=== PATIENT | male | born 1965 | race Caucasian/White ===

== ENCOUNTER 2017-04-03 14:46 | Emergency (ER) | payer MEDICAID, OTHER ==
[~2017-04-03 14:46] MED LIST: CEPHALEXIN 500 MG CAP PO SCH; SULFAMETHOX/TMP 800/160 MG 1 TAB PO SCH
[2017-04-03 14:57] VITALS: RESP 18; TEMP 98.8
--- NOTE | 2017-04-03 15:27 | EDPHY ---
H & P Time Seen by Provider: 04/03/17 15:19 HPI/ROS: HPI: 51-year-old homeless male presents to ED with chief concern right forearm abscess. Symptoms onset 4-5 days ago. Reports right forearm redness, swelling. Denies fever, chills, myalgias, nausea, vomiting. He is IV drug user. Currently living at the [facility]. He is a chronic pain patient followed by Dr. Sharri Melendez on oxycodone. Allergy to amoxicillin is rash. ROS:10 point review of systems is negative other than as stated in HPI Past Medical/Surgical History: IV drug user, chronic pain patient Social History: Homeless Smoking Status: Current every day smoker Physical Exam: Vital signs reviewed by me General: Awake, alert, calm, cooperative. No acute distress. Head: Normalocephalic. Atraumatic. EENT: PERRLA. EOMI. No pallor or injection. Anicteric. No nystagmus. No injection. TMs intact bilaterally with normal landmarks. Neck: Supple, nontender. No lymphadenopathy. Full range of motion. No meningismus. Respiratory: Breathing unlabored. Breath sounds equal bilaterally and clear to auscultation. No adventitious sounds. CV: Chest nontender, atraumatic. Heart rate regular and tachycardic. No murmur , distal pulses 2+ bilaterally. Brisk cap refill all extremities. GI: Abdomen soft, nontender. Bowel sounds normoactive and positive x4 quadrants. Neuro: Alert. Oriented x 3. Speech clear. Nonfocal cranial nerves throughout. Sensation intact all extremities. Skin: Skin warm, dry, intact. Track gomez bilateral upper extremities. 3 cm x 2 cm abscess ventral aspect right forearm. Minimal surrounding cellulitis. Extremities: Full range of motion in all 4 extremities. Strength 5+ all extremities. Constitutional: Initial Vital Signs Temperature (C) 37.1 C 04/03/17 14:55 Heart Rate 114 H 04/03/17 14:55 Respiratory Rate 18 04/03/17 14:55 Blood Pressure 125/82 H 04/03/17 14:55 O2 Sat (%) 90 L 04/03/17 14:55 O2 Delivery Mode Room Air Allergies/Adverse Reactions: Penicillins Allergy (Verified 04/03/17 14:55) Home Medications: Medication Instructions Recorded Cephalexin [Keflex (*)] 500 mg PO QID #28 cap 04/03/17 Oxycodone HCl 04/03/17 Sulfamethox/Tmp 800/160 mg 1 tab PO BID #14 tab 04/03/17 [Bactrim Ds] Medical Decision Making ED Course/Re-evaluation: White count 9550. Lactic acid 0.8. Patient will be discharged with Keflex and Bactrim. 1st dose is given in ED. Antibiotics provided to patient through map program-arrange by security manager [place]. Procedure: Abscess drainage. The patient's abscess was located on the right ventral forearm. I obtained verbal consent from the patient to drain the abscess who was informed about the possibility of bleeding and pain. 0.75 cm Incision was made with a [# [id number] ] and a [moderate] amount of purulent drainage was expressed. Wound was irrigated with 500 mL sterile saline. Packing was placed. The patient tolerated the procedure well. The procedure was performed by myself. Sterile dressing and copious amounts of bacitracin of placed by distribution technician. Differential Diagnosis: Abscess, sepsis - Data Points Laboratory Results: Laboratory Results 04/03/17 16:00 04/03/17 04/03/17 16:00 16:00 WBC 9.55 10^3/uL H 10^3/uL (3.80-9.50) RBC 4.31 10^6/uL L 10^6/uL (4.40-6.38) Hgb 12.2 g/dL L g/dL (13.7-17.5) Hct 36.8 % L % (40.0-51.0) MCV 85.4 fL fL (81.5-99.8) MCH 28.3 pg pg (27.9-34.1) MCHC 33.2 g/dL g/dL (32.4-36.7) RDW 14.1 % % (11.5-15.2) Plt Count 374 10^3/uL 10^3/uL (150-400) MPV 9.4 fL fL (8.7-11.7) Neut % (Auto) 65.2 % % (39.3-74.2) Lymph % (Auto) 24.0 % % (15.0-45.0) [place] % (Auto) 8.4 % % (4.5-13.0) Eos % (Auto) 1.6 % % (0.6-7.6) Baso % (Auto) 0.5 % % (0.3-1.7) Nucleat RBC Rel Count 0.0 % % (0.0-0.2) Absolute Neuts (auto) 6.23 10^3/uL 10^3/uL (1.70-6.50) Absolute Lymphs (auto) 2.29 10^3/uL 10^3/uL (1.00-3.00) Absolute Monos (auto) 0.80 10^3/uL 10^3/uL (0.30-0.80) Absolute Eos (auto) 0.15 10^3/uL 10^3/uL (0.03-0.40) Absolute Basos (auto) 0.05 10^3/uL 10^3/uL (0.02-0.10) Absolute Nucleated RBC 0.00 10^3/uL 10^3/uL (0-0.01) Immature Gran % 0.3 % % (0.0-1.1) Immature Gran # 0.03 10^3/uL 10^3/uL (0.00-0.10) VBG Lactic Acid 0.8 mmol/L mmol/L (0.7-2.1) Departure - Departure Disposition: Home, Routine, Self-Care Clinical Impression: Abscess Condition: Good Instructions: Abscess (ED) Additional Instructions: Plan: Return to the emergency department in 48 hours for recheck and packing removal without fail Keflex antibiotic for 1 week as prescribed Bactrim antibiotic for 1 week as prescribed Heat to area 3 times daily for 20 minutes Keep extremity elevated while at rest Referrals: Renay Melendez [Primary Care Provider] - As per Instructions Prescriptions: Cephalexin [Keflex (*)] 500 mg PO QID #28 cap Sulfamethox/Tmp 800/160 mg [Bactrim Ds] 1 tab PO BID #14 tab
[2017-04-03] MEDS ORDERED: CEPHALEXIN 500 MG CAP PO ONE (15:46)
[2017-04-03] MEDS ORDERED: SULFAMETHOX/TMP 800/160 MG 1 TAB PO ONE (15:46)
[2017-04-03 16:09] LABS: % IMMATURE GRANULYOCYTES 0.3 % (0.0-1.1); ABSOLUTE IMMATURE GRANULOCYTES 0.03 10^3/uL (0.00-0.10); ADD DIFF? NO; ADD MORPH? NO; ADD SCAN? NO; ATYPICAL LYMPHOCYTE FLAG 30 (0-99); FRAGMENT RBC FLAG 0 (0-99); HEMATOCRIT 36.8 % (40.0-51.0); HEMOGLOBIN 12.2 g/dL (13.7-17.5); LEFT SHIFT FLG 0 (0-99); LIPEMIA HEMOLYSIS FLAG 80 (0-99); MEAN CELL HEMOGLOBIN 28.3 pg (27.9-34.1); MEAN CELL HEMOGLOBIN CONCENTR. 33.2 g/dL (32.4-36.7); MEAN CELL VOLUME 85.4 fL (81.5-99.8); MEAN PLATELET VOLUME 9.4 fL (8.7-11.7); PLATELET CLUMPS FLAG 0 (0-99); PLATELET COUNT 374 10^3/uL (150-400); RED BLOOD CELL COUNT 4.31 10^6/uL (4.40-6.38); RED CELL DISTRIBUTION WIDTH 14.1 % (11.5-15.2)
[2017-04-03 16:45] VITALS: BP 115/62; PULSE 102; O2SAT 94
== END 2017-04-03 16:42 | disposition home or self-care (01) ==
PROC: 0H9DXZZ Drainage of Right Lower Arm Skin, External Approach (ICD-10-PCS; principal; 2017-04-03)
DX: L02.413 Cutaneous abscess of right upper limb (principal); F17.200 Nicotine dependence, unspecified, uncomplicated

== ENCOUNTER 2017-04-05 14:41 | Emergency (ER) | payer MEDICAID ==
[2017-04-05 14:46] VITALS: BP 107/70; PULSE 69; RESP 18; TEMP 97.3; O2SAT 93
--- NOTE | 2017-04-05 15:16 | EDPHY ---
H & P Stated Complaint: recheck wound r arm Time Seen by Provider: 04/05/17 15:06 HPI/ROS: CHIEF COMPLAINT: Dressing change HISTORY OF PRESENT ILLNESS: Patient is a 51-year-old homeless man who comes to the emergency department for dressing change for an abscess of his right forearm. He was seen here 3 days ago and had I and D. Packing was placed. He was given Keflex and Bactrim through our pharmacy. He has been taking this. He states that his wound is improving. He is here to have the packing removed. He has not had any fevers or body aches. REVIEW OF SYSTEMS: Constitutional: denies: chills, fever, recent illness, recent injury EENTM: denies: blurred vision, double vision, nose congestion Respiratory: denies: cough, shortness of breath Cardiac: denies: chest pain, irregular heart rate, lightheadedness, palpitations Gastrointestinal/Abdominal: denies: abdominal pain, diarrhea, nausea, vomiting, blood streaked stools Genitourinary: denies: dysuria, frequency, hematuria, pain Musculoskeletal: denies: joint pain, muscle pain Skin: See HPI Neurological: denies: headache, numbness, paresthesia, tingling, dizziness, weakness Hematologic/Lymphatic: denies: blood clots, easy bleeding, easy bruising Immunologic/allergic: denies: HIV/AIDS, transplant EXAM: GENERAL: Well-appearing, well-nourished and in no acute distress. HEAD: Atraumatic, normocephalic. EYES: Pupils equal round and reactive to light, extraocular movements intact, sclera anicteric, conjunctiva are normal. ENT: TMs normal, nares patent, oropharynx clear without exudates. Moist mucous membranes. NECK: Normal range of motion, supple without lymphadenopathy or JVD. LUNGS: Breath sounds clear to auscultation bilaterally and equal. No wheezes rales or rhonchi. HEART: Regular rate and rhythm without murmurs, rubs or gallops. ABDOMEN: Soft, nontender, normoactive bowel sounds. No guarding, no rebound. No masses appreciated. BACK: No CVA tenderness, no spinal tenderness, step-offs or deformities EXTREMITIES: Normal range of motion, no pitting or edema. No clubbing or cyanosis. NEUROLOGICAL: Cranial nerves II through XII grossly intact. Normal speech, normal gait. 5 strength, normal movement in all extremities, normal sensation PSYCH: Normal mood, normal affect. SKIN: Patient's packing was removed. Wound is open. No significant purulence currently. Decreased erythema. Source: Patient Exam Limitations: No limitations - Personal History Current Tetanus/Diphtheria Vaccine: Yes - Medical/Surgical History Hx Asthma: No Hx Chronic Respiratory Disease: No Hx Diabetes: No Hx Cardiac Disease: No Hx Renal Disease: No Hx Cirrhosis: No Hx Alcoholism: No Hx HIV/AIDS: No Hx Splenectomy or Spleen Trauma: No Other PMH: lower back surgery - Family History Significant Family History: No pertinent family hx - Social History Smoking Status: Current every day smoker Alcohol Use: Sober Drug Use: None Constitutional: Initial Vital Signs Temperature (C) 36.3 C 04/05/17 14:44 Heart Rate 69 04/05/17 14:44 Respiratory Rate 18 04/05/17 14:44 Blood Pressure 107/70 04/05/17 14:44 O2 Sat (%) 93 04/05/17 14:44 O2 Delivery Mode Room Air Allergies/Adverse Reactions: Penicillins Allergy (Verified 04/05/17 14:42) Home Medications: Medication Instructions Recorded Cephalexin [Keflex (*)] 500 mg PO QID #28 cap 04/03/17 Oxycodone HCl 04/03/17 Sulfamethox/Tmp 800/160 mg 1 tab PO BID #14 tab 04/03/17 [Bactrim Ds] Medical Decision Making ED Course/Re-evaluation: Patient's packing was removed. It was irrigated and redressed. No more packing placed. Patient tolerated the procedure well. I encouraged him to continue taking the antibiotics. He is happy with this and declines any further workup or testing at this time. Differential Diagnosis: Partial list of the Differential diagnosis considered include but were not limited to; abscess, dressing change, packing removal and although unlikely based on the history and physical exam, I also considered cellulitis, sepsis. I discussed these differential diagnoses and the plan with the patient as well as the usual and expected course. The patient understands that the diagnosis is provisional and that in medicine we are not always correct and that further workup is often warranted. Usual and customary warnings were given. All of the patient's questions were answered. The patient was instructed to return to the emergency department should the symptoms at all worsen or return, otherwise to followup with the physician as we discussed. Departure - Departure Disposition: Home, Routine, Self-Care Clinical Impression: Abscess Condition: Fair Instructions: Abscess Follow-up (ED) Referrals: NONE *PRIMARY CARE P,. [Primary Care Provider] - As per Instructions [facility],. [Clinic] - As per Instructions
== END 2017-04-05 15:34 | disposition home or self-care (01) ==
DX: L02.413 Cutaneous abscess of right upper limb (principal); F17.200 Nicotine dependence, unspecified, uncomplicated
CPT/HCPCS: G0463

== ENCOUNTER 2017-05-21 11:57 | Emergency (ER) | payer MEDICAID ==
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
[2017-05-21 12:29] LABS: % IMMATURE GRANULYOCYTES 0.4 % (0.0-1.1); ABSOLUTE IMMATURE GRANULOCYTES 0.02 10^3/uL (0.00-0.10); ADD DIFF? NO; ADD MORPH? NO; ADD SCAN? YES; FRAGMENT RBC FLAG 0 (0-99); HEMATOCRIT 44.6 % (40.0-51.0); HEMOGLOBIN 15.3 g/dL (13.7-17.5); LEFT SHIFT FLG 0 (0-99); LIPEMIA HEMOLYSIS FLAG 90 (0-99); MEAN CELL HEMOGLOBIN 28.3 pg (27.9-34.1); MEAN CELL HEMOGLOBIN CONCENTR. 34.3 g/dL (32.4-36.7); MEAN CELL VOLUME 82.6 fL (81.5-99.8); MEAN PLATELET VOLUME 9.6 fL (8.7-11.7); PLATELET CLUMPS FLAG 0 (0-99); PLATELET COUNT 325 10^3/uL (150-400); RED CELL DISTRIBUTION WIDTH 13.5 % (11.5-15.2)
[2017-05-21 12:36] LABS: ANION GAP 17 mEq/L (8-16); ATYPICAL LYMPHOCYTE FLAG 190 (0-99); CALCIUM 9.7 mg/dL (8.5-10.4); CARBON DIOXIDE 20 mEq/l (22-31); CHLORIDE 103 mEq/L (97-110); CREATININE 0.9 mg/dL (0.7-1.3); ETHANOL SERUM 151 mg/dL (0-10); GLOMERULAR FILTRATION RATE > 60; GLUCOSE 102 mg/dL (70-100); POTASSIUM 4.1 mEq/L (3.5-5.2); SALICYLATE < 1.0 mg/dL (2.0-20.0); SODIUM 140 mEq/L (134-144)
--- NOTE | 2017-05-21 12:43 | CPEKG ---
Heart Rate: 110 RR Interval: 545 P-R Interval: 144 QRSD Interval: 86 QT Interval: 364 QTC Interval: 493 P [place]: 74 QRS [place]: 68 T Wave [place]: 76 EKG Severity - BORDERLINE ECG - EKG Impression: SINUS TACHYCARDIA EKG Impression: BORDERLINE PROLONGED QT INTERVAL Electronically Signed By: Amador Guillen 21-May-2017 12:47:14
[2017-05-21] MEDS ORDERED: KETOROLAC 15 MG/1 ML SDV ONE (12:57)
[2017-05-21 13:12] LABS: SCAN NEGATIVE
[2017-05-21] MEDS ORDERED: oxyCODONE IR 15 MG TAB PO ONE ×2 (15:33→21:56)
[2017-05-21 17:12] VITALS: O2SAT 94
[2017-05-21] MEDS ORDERED: NICOTINE POLACRILEX 2 MG GUM B ONE (17:17)
[2017-05-21] MEDS ORDERED: NICOTINE POLACRILEX 2 MG GUM B PRN (17:22)
[2017-05-21] MEDS ORDERED: oxyCODONE IR 5 MG TAB PO ONE (22:15)
[2017-05-21 22:37] VITALS: BP 123/87; PULSE 94; RESP 16; TEMP 98.4
== END 2017-05-21 22:37 ==
LOC: EDUNIT#
DX: S50.811A Abrasion of right forearm, initial encounter (principal); F32.2 Major depressive disorder, single episode, severe without psychotic features; M54.5 Low back pain; G89.29 Other chronic pain; F10.120 Alcohol abuse with intoxication, uncomplicated; I10 Essential (primary) hypertension; F17.200 Nicotine dependence, unspecified, uncomplicated; X78.8XXA Intentional self-harm by other sharp object, initial encounter
CPT/HCPCS: 80305; G0480; J1885

== ENCOUNTER 2017-07-02 11:27 | Emergency (ER) | payer MEDICAID ==
--- NOTE | 2017-07-02 12:50 | EDPHY ---
H & P Time Seen by Provider: 07/02/17 12:42 HPI/ROS: CHIEF COMPLAINT: Altered mental status HISTORY OF PRESENT ILLNESS: Arrives by EMS altered with history of drinking Listerine. He also has a history of taking opioid medication for chronic back pain. REVIEW OF SYSTEMS: Unable to complete further history or review of systems because of patient's altered mental status on arrival. PAST MEDICAL HISTORY: Lower back surgery and chronic opioid medication, hypertension, depression and anxiety, PTSD Social history: Recent alcohol ingestion per EMS. General Appearance: Sleepy, opens eyes spontaneously. Will not answer questions. Eyes: No scleral icterus. ENT, Mouth: Normal mucous membranes. Respiratory: Normal respiratory effort, breath sounds equal, lungs are clear to auscultation. Cardiovascular: Regular rate and rhythm. Gastrointestinal: Abdomen is soft and non tender. Neurological: Will not answer questions but open spontaneously his eyes. Moves all 4 extremities. Skin: Warm and dry, no rashes. Musculoskeletal: No peripheral edema and no joint swelling. No extremity deformity, no spine step-off, no external evidence of trauma. Psychiatric: Unable on arrival. Emergency Department course/MDM: Arrives by EMS, pre-hospital glucose 87. 1332: Still noted be tachycardic at 140., labs and EKG ordered. 1451: Alert, awake, ambulatory, no medical complaints, admits to alcohol only. No SI or HI. Stable for discharge to detox. Smoking Status: Current every day smoker Constitutional: Initial Vital Signs Temperature (C) 36.5 C 07/02/17 11:35 Heart Rate 85 07/02/17 11:35 Respiratory Rate 16 07/02/17 11:35 Blood Pressure 119/79 07/02/17 11:35 O2 Sat (%) 91 L 07/02/17 11:35 O2 Delivery Mode Room Air O2 (L/minute) 2 Allergies/Adverse Reactions: Penicillins Allergy (Verified 04/05/17 14:42) Home Medications: Medication Instructions Recorded Atomoxetine HCl [Strattera] 40 mg PO 05/21/17 Medical Decision Making - Diagnostics EKG Interpretation: 12-lead EKG interpreted by me; official reading is in trace master. My interpretation is sinus tachycardia rate 127. No ischemic changes. Differential Diagnosis: Differential diagnosis considered for altered mental status including but not limited to hypoglycemia, infectious process, electrolyte abnormality, head injury and intoxicants. - Data Points Laboratory Results: Laboratory Results 07/02/17 13:40 07/02/17 13:40 07/02/17 07/02/17 13:40 13:40 WBC 4.92 10^3/uL 10^3/uL (3.80-9.50) RBC 5.08 10^6/uL 10^6/uL (4.40-6.38) Hgb 14.6 g/dL g/dL (13.7-17.5) Hct 42.7 % % (40.0-51.0) MCV 84.1 fL fL (81.5-99.8) MCH 28.7 pg pg (27.9-34.1) MCHC 34.2 g/dL g/dL (32.4-36.7) RDW 14.6 % % (11.5-15.2) Plt Count 172 10^3/uL 10^3/uL (150-400) MPV 9.5 fL fL (8.7-11.7) Neut % (Auto) 81.3 % H % (39.3-74.2) Lymph % (Auto) 9.6 % L % (15.0-45.0) [place] % (Auto) 7.9 % % (4.5-13.0) Eos % (Auto) 0.0 % L % (0.6-7.6) Baso % (Auto) 0.8 % % (0.3-1.7) Nucleat RBC Rel Count 0.0 % % (0.0-0.2) Absolute Neuts (auto) 4.00 10^3/uL 10^3/uL (1.70-6.50) Absolute Lymphs (auto) 0.47 10^3/uL L 10^3/uL (1.00-3.00) Absolute Monos (auto) 0.39 10^3/uL 10^3/uL (0.30-0.80) Absolute Eos (auto) 0.00 10^3/uL L 10^3/uL (0.03-0.40) Absolute Basos (auto) 0.04 10^3/uL 10^3/uL (0.02-0.10) Absolute Nucleated RBC 0.00 10^3/uL 10^3/uL (0-0.01) Immature Gran % 0.4 % % (0.0-1.1) Immature Gran # 0.02 10^3/uL 10^3/uL (0.00-0.10) Sodium 146 mEq/L H mEq/L (134-144) Potassium 3.8 mEq/L mEq/L (3.5-5.2) Chloride 105 mEq/L mEq/L (97-110) Carbon Dioxide 24 mEq/l mEq/l (22-31) Anion Gap 17 mEq/L H mEq/L (8-16) BUN 10 mg/dL mg/dL (7-23) Creatinine 0.9 mg/dL mg/dL (0.7-1.3) Estimated GFR > 60 Glucose 151 mg/dL H mg/dL (70-100) Calcium 8.5 mg/dL mg/dL (8.5-10.4) Ethyl Alcohol 347 mg/dL H mg/dL (0-10) Medications Given: Discontinued Medications Sodium Chloride (Ns) 500 mls @ 0 mls/hr IV EDNOW ONE; Wide Open PRN Reason: Protocol Stop: 07/02/17 13:32 Last Admin: 07/02/17 13:20 Dose: 500 mls Departure - Departure Disposition: Home, Routine, Self-Care Clinical Impression: Alcoholic intoxication Qualifiers: Complication of substance-induced condition: uncomplicated Qualified Code(s): F10.920 - Alcohol use, unspecified with intoxication, uncomplicated Condition: Good Instructions: Alcohol Intoxication (ED) Referrals: [facility],. [Clinic] - As per Instructions
[2017-07-02] MEDS ORDERED: NS 500 ML IV ONE (13:31)
[2017-07-02 13:49] LABS: % IMMATURE GRANULYOCYTES 0.4 % (0.0-1.1); ABSOLUTE IMMATURE GRANULOCYTES 0.02 10^3/uL (0.00-0.10); ADD DIFF? NO; ADD MORPH? NO; ADD SCAN? NO; ATYPICAL LYMPHOCYTE FLAG 0 (0-99); FRAGMENT RBC FLAG 0 (0-99); HEMATOCRIT 42.7 % (40.0-51.0); HEMOGLOBIN 14.6 g/dL (13.7-17.5); LEFT SHIFT FLG 0 (0-99); LIPEMIA HEMOLYSIS FLAG 90 (0-99); MEAN CELL HEMOGLOBIN 28.7 pg (27.9-34.1); MEAN CELL HEMOGLOBIN CONCENTR. 34.2 g/dL (32.4-36.7); MEAN CELL VOLUME 84.1 fL (81.5-99.8); MEAN PLATELET VOLUME 9.5 fL (8.7-11.7); PLATELET CLUMPS FLAG 0 (0-99); PLATELET COUNT 172 10^3/uL (150-400); RED BLOOD CELL COUNT 5.08 10^6/uL (4.40-6.38); RED CELL DISTRIBUTION WIDTH 14.6 % (11.5-15.2)
--- NOTE | 2017-07-02 13:59 | CPEKG ---
Heart Rate: 127 RR Interval: 472 P-R Interval: 144 QRSD Interval: 86 QT Interval: 312 QTC Interval: 454 P [place]: 69 QRS [place]: 58 T Wave [place]: 73 EKG Severity - OTHERWISE NORMAL ECG - EKG Impression: SINUS TACHYCARDIA Electronically Signed By: Amador Guillen 02-Jul-2017 13:00:20
[2017-07-02 14:12] LABS: ANION GAP 17 mEq/L (8-16); CALCIUM 8.5 mg/dL (8.5-10.4); CARBON DIOXIDE 24 mEq/l (22-31); CHLORIDE 105 mEq/L (97-110); CREATININE 0.9 mg/dL (0.7-1.3); GLOMERULAR FILTRATION RATE > 60; GLUCOSE 151 mg/dL (70-100); POTASSIUM 3.8 mEq/L (3.5-5.2); SODIUM 146 mEq/L (134-144)
[2017-07-02 14:35] LABS: ETHANOL SERUM 347 mg/dL (0-10)
[2017-07-02 14:58] VITALS: RESP 18
[2017-07-02 14:59] VITALS: PULSE 125
[2017-07-02 15:05] VITALS: BP 116/68; TEMP 98.4; O2SAT 98
== END 2017-07-02 15:04 | disposition home or self-care (01) ==
LOC: EDUNIT#
DX: F10.920 Alcohol use, unspecified with intoxication, uncomplicated (principal); F17.200 Nicotine dependence, unspecified, uncomplicated; E86.9 Volume depletion, unspecified
CPT/HCPCS: G0480

== ENCOUNTER 2017-07-02 16:29 | Emergency (ER) | payer MEDICAID ==
[2017-07-02 16:36] VITALS: RESP 16; O2SAT 92
--- NOTE | 2017-07-02 16:41 | EDPHY ---
H & P Time Seen by Provider: 07/02/17 16:34 HPI/ROS: CHIEF COMPLAINT: Altered mental status HISTORY OF PRESENT ILLNESS: Patient just released from the ER was brought in by EMS glucose 122 with altered mental status. Drinking Listerine again. Appears intoxicated but no other medical complaints. REVIEW OF SYSTEMS: Eye: no change in vision ENT: no sore throat Cardiac: no chest pain or syncope Pulmonary: no cough or SOB Abdomen: no vomiting, diarrhea, abdominal pain Musculoskeletal: no back pain Skin: no rash Neuro: generally weak and slower as above. Constitutional: no fever : no urinary symptoms A comprehensive 10 point review of systems is otherwise negative aside from elements mentioned in the history of present illness. PAST MEDICAL HISTORY: Low back pain, hypertension, depression and anxiety Social history: Recent alcohol, no drugs General Appearance: Patient cooperative with the exam. Not in distress. Eyes: No scleral icterus. ENT, Mouth: Normal mucous membranes. Respiratory: Normal respiratory effort, breath sounds equal, lungs are clear to auscultation. Cardiovascular: Regular rate and rhythm. Gastrointestinal: Abdomen is soft and non tender. Neurological: Opens eyes spontaneously, admits ethanol, follows commands. Moving all 4 extremities. Skin: Warm and dry, no rashes. No external evidence of trauma. No lacerations, no bruising, no hematomas. Musculoskeletal: No peripheral edema and no joint swelling. Psychiatric: Not agitated. Emergency Department course/MDM: Recurrent ethanol intoxication with normal glucose. Plan for observation until sober enough to discharge to detox. 1750: ambulatory, not ataxic, no medical complaints, speech not slurred. Smoking Status: Current every day smoker Constitutional: Initial Vital Signs Temperature (C) 37.2 C 07/02/17 16:35 Heart Rate 72 07/02/17 16:35 Respiratory Rate 16 07/02/17 16:35 Blood Pressure 99/59 L 07/02/17 16:35 O2 Sat (%) 92 07/02/17 16:35 O2 Delivery Mode Room Air Allergies/Adverse Reactions: Penicillins Allergy (Verified 07/02/17 19:04) Home Medications: Medication Instructions Recorded Atomoxetine HCl [Strattera] 40 mg PO 05/21/17 Departure - Departure Disposition: Home, Routine, Self-Care Clinical Impression: Alcohol intoxication Qualifiers: Complication of substance-induced condition: uncomplicated Qualified Code(s): F10.920 - Alcohol use, unspecified with intoxication, uncomplicated Condition: Good Instructions: Alcohol Intoxication (ED), Abuse of Alcohol (ED) Referrals: [facility],. [Clinic] - As per Instructions
[2017-07-02 16:43] VITALS: TEMP 99
[2017-07-02 17:51] VITALS: BP 110/70; PULSE 70
== END 2017-07-02 17:30 | disposition home or self-care (01) ==
LOC: EDUNIT#
DX: F10.920 Alcohol use, unspecified with intoxication, uncomplicated (principal); I10 Essential (primary) hypertension; F17.200 Nicotine dependence, unspecified, uncomplicated

== ENCOUNTER 2017-07-02 19:00 | Emergency (ER) | payer MEDICAID ==
[2017-07-02 19:06] VITALS: RESP 16; TEMP 98.1; O2SAT 97
--- NOTE | 2017-07-02 20:42 | EDPHY ---
H & P Smoking Status: Current every day smoker Time Seen by Provider: 07/02/17 20:40 HPI/ROS: HPI: Mr. Mandujano is a 51 yrs, male who presents with Chief Complaint: Head injury Location: Head Quality: Injury Duration: Today Signs and Symptoms: Unsure if loss of consciousness due to alcohol intoxication , + mild neck pain, no nausea, no vomiting, no headache, no fever, no chest pain , no shortness of breath Timing: Sudden Severity: Moderate Context: Patient relates that he was drinking alcohol today will not admit to the amount of use when he accidentally tripped and fell down the stairs. He presents with a cut to the top of his head as well as some mild neck pain. Modifying Factors: Comment: ROS: Eyes: No blurred vision Respiratory: No shortness of breath, no cough Cardiovascular: No chest pain Gastrointestinal: No nausea, no vomiting no diarrhea Genitourinary: No dysuria Extremities: No myalgias Neurologic: No weakness, no numbness Skin: No rashes Hematologic: No bruising, no bleeding (Marzena Syed) Past Medical/Surgical History: Lower back surgery, chronic back pain, chronic opiate use/dependence, hypertension, depression, anxiety, posttraumatic stress disorder. (Marzena Syed) Social History: Single, unemployed. (Marzena Syed) Physical Exam: CONSTITUTIONAL: Sleeping soundly adult white male who is clearly intoxicated, not easily awakened, no obvious distress HEENT: 2 inch skin tear noted on right parietal area of scalp; no active bleeding. and normocephalic, PERRL, EOMI. Tympanic membranes clear. Oropharynx clear, no exudate and moist pink mucosa. Airway patent. NECK: Supple, mild posterior tenderness, full range of motion. No lymphadenopathy. No meningismus. Cardiovascular: Normal S1/S2, tachycardia, regular rhythm, without murmur rub or gallop. PULMONARY/CHEST: Symmetrical and nontender. Clear to auscultation bilaterally Good air movement. No accessory muscle usage. ABDOMEN: Soft, nondistended, nontender, no rebound, no guarding, no peritoneal signs, no masses or organomegaly. No CVAT. EXTREMITIES: 2/2 pulses, no deformities, no clubbing, no cyanosis or edema. NEUROLOGICAL: no focal neuro deficits. GCS 15. SKIN: Warm and dry, no erythema. no rash. Good capillary refill. (Marzena Syed) Constitutional: Initial Vital Signs Temperature (C) 36.7 C 07/02/17 19:04 Heart Rate 105 H 07/02/17 19:04 Respiratory Rate 16 07/02/17 19:04 Blood Pressure 108/73 07/02/17 19:04 O2 Sat (%) 97 07/02/17 19:04 O2 Delivery Mode Room Air Allergies/Adverse Reactions: Penicillins Allergy (Verified 07/02/17 19:04) Home Medications: Medication Instructions Recorded Atomoxetine HCl [Strattera] 40 mg PO 05/21/17 Medical Decision Making ED Course/Re-evaluation: Due to alcohol intoxication in unreliable historians to loss of consciousness head CT scan ordered along with cervical CT scan Head CT scan shows no acute intracranial process including hemorrhage CT cervical scan shows mild degenerative disc disease; no fracture (Marzena Syed) I did not see this patient while he was in the emergency department. However his care was discussed with the PA while the patient was in the department. I agree with treatment plan and management (Gage Alfonso) Differential Diagnosis: Differential diagnosis includes but is not limited did to intracranial hemorrhage, contusion, cervical fracture, alcohol intoxication, concussion. (Marzena Syed) Departure - Departure Disposition: Home, Routine, Self-Care Clinical Impression: Alcohol intoxication, Skin tear, Accidental fall Condition: Good Instructions: Scalp Contusion in Adults (ED) Referrals: NONE *PRIMARY CARE P,. [Primary Care Provider] - As per Instructions [facility] [Clinic] - 2-3 days, if not improved
[2017-07-03 01:25] VITALS: BP 110/71; PULSE 90
== END 2017-07-02 22:34 | disposition home or self-care (01) ==
LOC: EDUNIT#
DX: S01.01XA Laceration without foreign body of scalp, initial encounter (principal); F10.129 Alcohol abuse with intoxication, unspecified; F17.200 Nicotine dependence, unspecified, uncomplicated; W10.8XXA Fall (on) (from) other stairs and steps, initial encounter; Y99.8 Other external cause status

== ENCOUNTER 2017-07-03 16:21 | Emergency (ER) | payer MEDICAID ==
--- NOTE | 2017-07-03 16:30 | EDPHY ---
HPI/HX/ROS/PE/MDM Narrative: CHIEF COMPLAINT: Alcohol intoxication HISTORY OF PRESENT ILLNESS: The patient is a 51-year-old male, seen here three times yesterday with alcohol intoxication, who presents with alcohol intoxication. The patient was found lying down outside of [employer]. He admits to vodka use today. The patient was unable to ambulate on scene. The patient takes OxyContin for chronic neck pain. He is out of the medication earlier than the dated prescription, but states he has not taken too much of it. He denies drug use. He denies fever, chills, chest pain, shortness of breath, palpitations, vomiting, diarrhea, urinary complaints, headache, or lightheadedness. REVIEW OF SYSTEMS: Aside from elements discussed in the HPI, a comprehensive 10-point review of systems was reviewed and is negative. PAST MEDICAL HISTORY: Alcohol abuse. Hypertension, Chronic neck pain, Anxiety, PTSD. SOCIAL HISTORY: Homeless. Alcohol abuse. Denies drug use. VITAL SIGNS: Reviewed by me GENERAL: Well-developed, well-nourished, resting comfortably in no respiratory distress. HEENT: Linear, non-suturable, well healing, superficial scrape. Eyes: No icterus, no injection. Pupils 4mm and reactive. Mouth: moist mucous membranes. No erythema or lesions. Neck: supple with no adenopathy. LUNGS: Clear to auscultation bilaterally, no wheezes, rhonchi or rales. CARDIAC: Regular rate and rhythm, no rubs, murmurs or gallops. ABDOMEN: Soft, nontender, nondistended, bowel sounds normal. BACK: No CVA tenderness. EXTREMITIES: Abrasion dorsum of right hand. Abrasion to left elbow. NEURO: Alert and oriented, grossly nonfocal. SKIN: Warm and dry, no rash. PSYCHIATRIC: Normal mentation, no agitation. Portions of this note were transcribed by a director medical safety. I personally performed a history, physical exam, medical decision making, and confirmed accuracy of information the transcribed note. (Karen Moore) ED Course: The patient was here three times with alcohol intoxication. He drank Listerine and hit his head. The patient returns today with alcohol intoxication. Patient is stable. Plan for fluids and discharge to the [facility]. Patient fell out of bed approximately 5 o'clock. His mattress was placed on the floor. He will be observed until he is ambulatory and then [facility] Care assumed by Dr Hernandez at 5pm. (Karen Moore) MDM: Diff dx considered included drug or alcohol intoxication, electrolyte abnormality, hypoglycemia, head injury. (Karen Moore) Patient's care is transferred to tx at 6:00 p.m.. The patient is intoxicated and waiting for sobriety and transport to [facility]. He is currently lying on a mattress on the floor. No sign of injury. 8:30 p.m. the patient is ambulating. He is sober enough to go to the [facility]. Denies any pain or injury. He then stood and urinated on a chair in the room. (Bill Hernandez) General Time Seen by Provider: 07/03/17 16:24 Initial Vital Signs: Initial Vital Signs Temperature (C) 36.8 C 07/03/17 16:27 Heart Rate 93 07/03/17 16:27 Respiratory Rate 16 07/03/17 16:27 Blood Pressure 123/78 H 07/03/17 16:27 O2 Sat (%) 93 07/03/17 16:27 O2 Delivery Mode Room Air O2 (L/minute) 2 Allergies/Adverse Reactions: Penicillins Allergy (Verified 07/02/17 19:04) Home Medications: Medication Instructions Recorded Oxycodone HCl 07/03/17 Departure - Departure Disposition: Home, Routine, Self-Care Clinical Impression: Alcohol intoxication Qualifiers: Complication of substance-induced condition: uncomplicated Qualified Code(s): F10.920 - Alcohol use, unspecified with intoxication, uncomplicated Condition: Good Instructions: Alcohol Intoxication (ED) Additional Instructions: Please followup at the [facility]. Referrals: Patient,NotPresent [Primary Care Provider] - As per Instructions
[2017-07-03 22:09] VITALS: RESP 16
[2017-07-03] MEDS ORDERED: CHLORDIAZEPOXIDE 25MG PREPK#6 BTL TAKEHOME ONE (23:29)
[2017-07-03 23:44] VITALS: BP 121/74; PULSE 74; TEMP 97.9; O2SAT 96
== END 2017-07-03 23:44 ==
LOC: EDUNIT#
DX: F10.920 Alcohol use, unspecified with intoxication, uncomplicated (principal); I10 Essential (primary) hypertension